=== PATIENT | female | born 1965 | race Caucasian/White ===

== ENCOUNTER 2016-05-15 16:01 | Emergency (ER) | payer BC, MEDICAID ==
[~2016-05-15] VITALS: Ht 167.6 cm; Wt 73.9 kg
[2016-05-15 16:12] VITALS: BP_SYST 154
--- NOTE | 2016-05-15 16:19 | NUR ---
PT to bed 5, placed in gown for evaluation
--- NOTE | 2016-05-15 16:20 | NUR ---
PT. TO ER AAOx4 FOR RECTAL PAIN, STATES THAT SHE HAS NOTED BLOOD COMING THROUGHT HER RECTUM SINCE LAST NIGHT, STATES HISTORY OF SINUS INFECTION, STATES TAKING STEROIDS WITH IBUPROFEN FOR PAIN, C/O LLQ PAIN 04/24, DENIES FEVER, IN COMFORTABLE POSITION RIGHT NOW, DENIES ANY OTHER COMPLAINTS
--- NOTE | 2016-05-15 16:37 | NUR ---
Dr. Jerry at bedside for evaluation
--- NOTE | 2016-05-15 16:40 | NUR ---
Rectal exam performed by ER MD Jerry with Faizan NICHOLAS at bedside during procedure. Patient tolerated well.
--- NOTE | 2016-05-15 16:50 | NUR ---
Patient moved to bed 3
[2016-05-15 17:24] LABS: BASOPHILS # (AUTO) 0.1 K/uL (0.0-0.2); BASOPHILS % (AUTO) 0.9 % (0.0-2.0); EOSINOPHILS # (AUTO) 0.1 K/uL (0.0-0.4); EOSINOPHILS % (AUTO) 0.6 % (0.0-4.0); HEMATOCRIT 40.3 % (36-48); LYMPHOCYTES # (AUTO) 2.9 K/uL (1.0-5.5); LYMPHOCYTES % (AUTO) 33.6 % (20.5-51.5); MEAN CORPUSCULAR HEMOGLOBIN 32 pg (27-31); MEAN CORPUSCULAR HGB CONC 35 % (32-36); MEAN CORPUSCULAR VOLUME 91 fL (79.0-98.0); MONOCYTES # (AUTO) 0.6 K/uL (0.0-1.0); MONOCYTES % (AUTO) 6.4 % (1.7-9.3); NEUTROPHILS % (AUTO) 58.5 % (40.0-70.0); PLATELET COUNT (AUTO) 279 K/uL (130-430); RED CELL DISTRIBUTION WIDTH 11.8 % (9.0-15.0); WHITE BLOOD COUNT (AUTO) 8.7 K/uL (4.8-10.8)
[2016-05-15 17:30] LABS: CALCIUM 8.8 mg/dL (8.4-11.0); CREATININE 0.75 mg/dL (0.55-1.30); POTASSIUM 3.7 mmol/L (3.5-5.1)
[2016-05-15 17:31] LABS: PROTHROMBIN TIME 10.6 SECS (9.5-12.5)
[2016-05-15 17:34] LABS: ALBUMIN 3.8 g/dL (3.4-4.8); TOTAL BILIRUBIN 0.3 mg/dL (0.0-1.0); TOTAL PROTEIN, SERUM 7.1 g/dL (6.4-8.3)
[2016-05-15 17:50] VITALS: BP_SYST 129
--- NOTE | 2016-05-15 17:50 | NUR ---
Patient given written and verbal discharge instructions and verbalizes understanding. ER MD DR. HAYES discussed with patient the results and treatment provided. Patient in stable condition. ID arm band removed. NO Rx given. Patient educated on pain management and to follow up with PMD. Pain Scale 0/10 Opportunity for questions provided and answered.
== END 2016-05-15 17:50 | disposition home or self-care (01) ==
LOC: SED 16:01
DX: K62.5 Hemorrhage of anus and rectum (principal)
CPT/HCPCS: 36415; 80053; 81025; 82272; 85025; 85610-TC; 85730-TC; 99284